=== PATIENT | male | born 1965 | race Caucasian/White ===

== ENCOUNTER 2019-01-01 06:17 | Day surgery (SDC) | payer MEDICAID ==
[2019-01-01] MEDS ORDERED: ACETAMINOPHEN 325 MG TAB (POST-OP) PO (07:00)
[2019-01-01] MEDS: PHENYLephrine 2.5% 15 ML OPH (PRE-OP) OPER (07:32)
[2019-01-01] MEDS: TROPICAMIDE 1% 15 ML OPH (PRE OP) OPER (07:33)
[2019-01-01] MEDS: DICLOFENAC 0.1% 2.5 ML OPH (PRE-OP) OPER (07:34)
[2019-01-01] MEDS: CIPROFLOXACIN 0.3% 2.5 ML OPH (PRE-OP) OPER (07:34)
[2019-01-01] MEDS: TETRACAINE 0.5% 4 ML OPH (PRE-OP) OPER (07:35)
[2019-01-01] MEDS ORDERED: TETRACAINE 0.5% 4 ML OPH (07:41)
[2019-01-01] MEDS ORDERED: EPINEPHrine 1 MG INJ (07:41)
[2019-01-01] MEDS: LIDOCAINE 1%/EPI 30 ML INJ (07:41)
[2019-01-01] MEDS ORDERED: LACTATED RINGER'S 500 ML IV (08:00)
[2019-01-01] MEDS ORDERED: MIDAZOLAM 1 MG/ML 2 ML INJ (08:13)
[2019-01-01] MEDS ORDERED: FENTAnyl 50 MCG/ML VIAL (08:13)
[2019-01-01] MEDS ORDERED: DIPHENHYDRAMINE 50 MG INJ IV (09:00)
[2019-01-01] MEDS ORDERED: MEPERIDINE 25 MG INJ IV (09:00)
[2019-01-01] MEDS ORDERED: FENTAnyl 50 MCG/ML VIAL IV (09:00)
[2019-01-01] MEDS ORDERED: HYDROmorphONE 1 MG/5 ML IV SYRINGE IV ×2 (09:00)
[2019-01-01] MEDS ORDERED: METOCLOPRAMIDE 10 MG INJ IV (09:00)
[2019-01-01] MEDS ORDERED: ONDANSETRON 4 MG INJ IV (09:00)
== END 2019-01-01 10:05 | disposition home or self-care (01) ==
LOC: SDS 06:17
DX: H25.11 Age-related nuclear cataract, right eye (principal); I10 Essential (primary) hypertension; E78.5 Hyperlipidemia, unspecified; E11.9 Type 2 diabetes mellitus without complications
CPT/HCPCS: 66984; 82962